=== PATIENT | male | born 1990 | race Caucasian/White ===

== ENCOUNTER 2020-09-18 13:43 | Inpatient (IN) | payer MEDICAID, OTHER ==
[~2020-09-18] VITALS: Ht 175.3 cm; Wt 108.4 kg
[2020-09-18] MEDS ORDERED: ONDANSETRON HCL 4 MG/2 ML VIAL IV ONE (14:15)
[2020-09-18] MEDS ORDERED: SODIUM CHLORIDE 0.9% 500 ML IVB ONE (14:15)
[2020-09-18 14:56] LABS: Basophils # (auto) 0.1 10 ^3/uL (0-0.2); Basophils % (auto) 0.5 % (0.0-2.0); Eosinophils # (auto) 0.1 10 ^3/uL (0-0.8); Eosinophils % (auto) 0.3 % (0.0-7.0); Hematocrit 51.2 % (41.0-53.0); Hemoglobin 17.4 g/dL (13.5-17.5); Lymphocytes # (auto) 0.6 10 ^3/uL (0.4-5.4); Lymphocytes % (auto) 3.5 % (10.0-50.0); Mean Corpuscular Hemoglobin 30.3 pg (28.0-32.0); Mean Corpuscular Volume 89.1 fL (80.0-100.0); Monocytes % (auto) 6.5 % (0.0-12.0); Neutrophils # (auto) 14.3 10 ^3/uL (1.6-8.6); Neutrophils % (auto) 89.2 % (37.0-80.0); Nucleated Red Blood Cells % 0.3 %; Platelet Count (auto) 346 10^3/uL (140-450); Red Blood Cells 5.75 10^6/uL (4.5-5.90); Red Cell Distribution Width 13.1 % (11.8-14.3)
[2020-09-18 15:16] LABS: Albumin 4.1 g/dL (3.4-5.0); Anion Gap 7 (5-15); Blood Alcohol < 3.0 mg/dL (0-5); Blood Urea Nitrogen 11 mg/dL (7-18); Calcium 9.3 mg/dL (8.5-10.1); Carbon Dioxide 28 mmol/L (21-32); Chloride 102 mmol/L (98-107); Glucose 116 mg/dL (74-106); Magnesium 2.5 mg/dL (1.6-2.6); Potassium 3.4 mmol/L (3.5-5.1); Sodium 137 mmol/L (136-145)
[2020-09-18 15:22] LABS: Alanine Aminotransferase 56 U/L (16-61); Alkaline Phosphatase 86 U/L (45-117); Aspartate Aminotransferase 29 U/L (15-37); BUN/Creatinine Ratio 9.4; Bilirubin, Total 0.8 mg/dL (0.2-1.0); GFR African American 96 mL/min; GFR Non-African American 79 mL/min; Total Protein 7.9 g/dL (6.4-8.2)
[2020-09-18 17:57] LABS: Amphetamine Screen, Urine NEGATIVE (NEGATIVE); Barbiturate Scree,Urine NEGATIVE (NEGATIVE); Benzodiazephine Screen, Urine NEGATIVE (NEGATIVE); Cocaine Screen, Urine NEGATIVE (NEGATIVE); Opiate Scree,Urine NEGATIVE (NEGATIVE); Phencyclidine Screen, Urine NEGATIVE (NEGATIVE)
[2020-09-18 17:58] LABS: Cannabinoid Screen, Urine NEGATIVE (NEGATIVE)
[2020-09-18] MEDS ORDERED: LORazepam 2MG/ML-1ML VIAL IV ONE (21:15)
[2020-09-18] MEDS ORDERED: ACETAMINOPHEN 325 MG TAB PO ONE (21:15)
[2020-09-18] MEDS ORDERED: NITROGLYCERIN 0.4 MG SL TAB SL PRN (21:45)
[2020-09-18] MEDS ORDERED: TEMAZEPAM 15 MG CAP PO PRN (21:45)
[2020-09-18] MEDS ORDERED: ONDANSETRON HCL 4 MG/2 ML VIAL IV PRN (21:45)
[2020-09-18] MEDS ORDERED: ACETAMINOPHEN 325 MG TAB PO PRN (21:45)
[2020-09-18] MEDS ORDERED: MORPHINE SULF INJ 2 MG/ML SYRINGE 1ML IV PRN (21:45)
[2020-09-18] MEDS ORDERED: ATORVASTATIN 20 MG TAB PO SCH (22:00)
[2020-09-18] MEDS: FAMOTIDINE 20 MG TAB PO SCH (22:15)
[2020-09-18] MEDS ORDERED: HYDROcodone-ACET 7.5/325MG TAB PO PRN (22:30)
[2020-09-19 00:20] VITALS: BP 126/78
--- NOTE | 2020-09-19 00:30 | NUR ---
Telemetry admit from [facility] admitted to Telemetry unit after SBAR received. Patient oriented to Lauryn Sinclair, RN primary RN, unit, room, bed, and unit policies regarding patient care and visiting hours. No S/S of distress or SOB. Pt complaining of all over body pain of 9/10, will medicate as prescribed. Patient now on continuous telemetry monitoring, tele box # 24 and telemetry reading on arrival to unit is SR 90s . Patient weighed by bedscale and encouraged to call if they need something. Safety measures in place, bed in lowest locked position, bed rails raised x2, call light within reach. All questions and concerns addressed, patient verbalized understanding.
[2020-09-19] MEDS ORDERED: OXY5T GT (01:40)
--- NOTE | 2020-09-19 02:00 | NUR ---
Pt states that the current pain medication regimen is not working, requesting new pain medication. Pt also requesting medication for anxiety. Hospitalist paged, awaiting call back.
--- NOTE | 2020-09-19 03:06 | NUR ---
No response from hospitalist, paged again, awaiting call back.
[2020-09-19] MEDS ORDERED: TEMAZEPAM 15 MG CAP PO ONE (04:45)
[2020-09-19] MEDS ORDERED: oxyCODONE ER 10 MG TAB PO ONE (04:45)
[2020-09-19 05:00] VITALS: BP 108/61
[2020-09-19 05:40] LABS: Basophils # (auto) 0.1 10 ^3/uL (0-0.2); Eosinophils # (auto) 0.3 10 ^3/uL (0-0.8); Eosinophils % (auto) 4.2 % (0.0-7.0); Hematocrit 43.2 % (41.0-53.0); Hemoglobin 14.9 g/dL (13.5-17.5); Lymphocytes # (auto) 1.7 10 ^3/uL (0.4-5.4); Lymphocytes % (auto) 27.9 % (10.0-50.0); Mean Corpuscular Hemoglobin 30.7 pg (28.0-32.0); Mean Corpuscular Hgb Conc. 34.4 g/dL (32.0-36.0); Mean Corpuscular Volume 89.3 fL (80.0-100.0); Monocytes # (auto) 0.6 10 ^3/uL (0-1.3); Neutrophils # (auto) 3.6 10 ^3/uL (1.6-8.6); Neutrophils % (auto) 57.9 % (37.0-80.0); Nucleated Red Blood Cells % 0.1 %; Platelet Count (auto) 317 10^3/uL (140-450); Red Blood Cells 4.84 10^6/uL (4.5-5.90); Red Cell Distribution Width 12.9 % (11.8-14.3); White Blood Cell 6.3 10^3/uL (4.4-10.8)
[2020-09-19 05:57] LABS: Potassium 3.8 mmol/L (3.5-5.1)
[2020-09-19 06:02] LABS: BUN/Creatinine Ratio 11.8; Calcium 8.8 mg/dL (8.5-10.1)
--- NOTE | 2020-09-19 07:45 | NUR ---
RECEIVED PATIENT ALERT AND ORIENTED X4, NOT IN DISTRESS, CLEAR LS IN BILATERAL LUNG LOBES, RR=18 SAT=93%, DEEP BREATHING AND COUGHING ENCOURAGED, VERBALIZED AND DEMONSTRATED UNDERSTANDING, SR R=86 ON TELE MONITOR, DENIED CP AND SOB AT THIS MOMENT, ABDOMEN SOFT WITH ACTIVE BS, LAST BM=09/17/20 REPORTED, SKIN INTACT WARM TO TOUCH, RADIAL AND PEDAL PULSES PALPABLE, CAP REFILL <3 SECONDS, DENIED PAIN, RESTING ON BED, HEAD OF BED ELEVATED, BED ON LOW POSITION, RAILS UP X2, CALL LIGHT ON REACH, PENDING CARDIAC CONSULT AND ECHO ORDERED, WILL CONTINUE MONITORING.
[2020-09-19 09:30] VITALS: BP 112/71
[2020-09-19] MEDS ORDERED: ASPirin 81 mg TAB PO SCH (10:00)
[2020-09-19] MEDS: FAMOTIDINE 20 MG TAB PO SCH (10:11)
[2020-09-19 13:30] VITALS: BP 122/55
[2020-09-19] MEDS ORDERED: IBUP600T27 PO (14:31)
--- NOTE | 2020-09-19 14:32 | NUR ---
PENDING CARDIAC CONSULT, C/O ANXIETY, DR. TAYLOR WAS CONTACTED AND NOTIFIED, NOT IN DISTRESS, RESTING ON BED, WILL CONTINUE MONITORING.
[2020-09-19] MEDS ORDERED: LORazepam 0.5 MG TAB PO ONE (14:45)
[2020-09-19 16:42] VITALS: BP 104/51
[2020-09-19 18:10] VITALS: BP 126/68
--- NOTE | 2020-09-19 19:44 | NUR ---
D/C INSTRUCTIONS AND FOLLOW UP INFORMATIONS AND EDUCATIONS PROVIDED, VERBALIZED UNDERSTANDING, D/C TELE MONITOR AND IV SITE, TOLERATED WELL, VS T=97.8 RR=18 SAT=97% P=84 FV=121/68, DENIED PAIN, NOT IN DISTRESS, WC PROVIDED, WENT HOME WALKING, TOOK ALL BELONGINGS AND LEFT NOTHING BEHIND.
[2020-09-20] MEDS ORDERED: ASPirin 81 mg TAB PO SCH (10:00)
== END 2020-09-19 19:20 | disposition home or self-care (01) | DRG 812 ==
LOC: ER 13:43 → EDBD 13:43 → TELE 13:44 → TELE-WESTW 23:43
PROVIDERS: ADMIT Nurse Practitioner; ATTEND Internal Medicine
DX: T40.601A Poisoning by unspecified narcotics, accidental (unintentional), initial encounter (principal); G92 Toxic encephalopathy; R77.8 Other specified abnormalities of plasma proteins; E66.9 Obesity, unspecified; G89.4 Chronic pain syndrome; F17.200 Nicotine dependence, unspecified, uncomplicated; F41.9 Anxiety disorder, unspecified; Y92.89 Other specified places as the place of occurrence of the external cause; Z68.35 Body mass index [BMI] 35.0-35.9, adult
CPT/HCPCS: 36415; 70450; 71045; 80048; 80053; 80307; 80320; 83735; 84484; 85025; 87081; 93306; 96361; 96374; 96375; G0378; J2405